=== PATIENT | male | born 1985 | race Caucasian/White ===

== ENCOUNTER 2024-06-27 15:06 | Emergency (ER) | payer SELFPAY ==
[2024-06-27 15:20] VITALS: BP 165/92; PULSE 99; RESP 14; TEMP 37; O2SAT 99; BMI 32.3
--- NOTE | 2024-06-27 15:54 | ED_ITS ---
HPI - Skin/Abscess/Foreign Bdy <Jacquelin Butterfield PA-C - Last Filed: 06/27/24 16:47> General Chief complaint: Skin/Abscess/Foreign Body Stated complaint: puncture wound rt hand Time Seen by Provider: 06/27/24 15:54 Source: patient Mode of arrival: Ambulatory Limitations: no limitations History of Present Illness HPI narrative: Patient is a very pleasant 39-year-old male presents to the emergency department after being directed here from the walk-in clinic. The patient presented to them today after being encouraged by friends. Yesterday the patient took out a knife out of the package, he Biaxin we lost control with, when the knife fell out of his hand he ended up accidentally stabbing himself unintentionally in the right wrist. The tip of the blade insert itself into the lateral aspect of his right wrist along the radial side of the wrist. There was a small puncture wound. The patient pulled the knife out. There was minimal bleeding. The patient placed skin glue over the wound. He told some of his friends who advised him that he should be seen in the urgent care or in the emergency room to be evaluated, in case he got infection. The patient initially went to the w alk-in clinic and the nurse directed him to the emergency room department. Currently at this time the patient does not have any physical complaints. He has some minor discomfort with movement of the wrist. He does not have any signs or symptoms of erythema, redness or drainage from the wound. The skin glue that he applied is still in place. Related Data Previous Rx's Medication Instructions Recorded cephalexin 500 mg capsule 500 mg PO QID 7 days #28 caps 06/27/24 prednisone 10 mg tablet 10 mg PO DIRECTED #12 tabs 06/27/24 Allergies Allergy/AdvReac Type Severity Reaction Status Date / Time No Known Drug Allergies Allergy Verified 06/27/24 15:24 Review of Systems <Jacquelin Butterfield PA-C - Last Filed: 06/27/24 16:47> Review of Systems Narrative: Negative except as above Musculoskeletal Comments: Puncture wound covered by skin glue to the lateral aspect of the right wrist along the radius wrist. Patient History <Jacquelin Butterfield PA-C - Last Filed: 06/27/24 16:47> Social History Smoking Status: Current every day smoker Smoking Status: Current every day smoker tobacco type: cigarettes alcohol intake frequency: 3 or more drinks per day Substance Use Type: does not use Exam <Jacquelin Butterfield PA-C - Last Filed: 06/27/24 16:47> Initial Vital Signs Initial Vital Signs: Vital Signs Temperature 98.6 F 06/27/24 15:20 Pulse Rate 99 H 06/27/24 15:20 Respiratory Rate 14 06/27/24 15:20 Blood Pressure 165/92 H 06/27/24 15:20 Pulse Oximetry 99 06/27/24 15:20 Oxygen Delivery Method Room Air 06/27/24 15:20 Const General: cooperative, healthy appearing, comfortable, well developed, well groomed, No acute distress and No in distress Eyes Pupils: PERRL EOM: EOM intact bilaterally Skin Other: Small puncture wound to the lateral aspect of the right wrist along the radial aspect. Currently a skin glue on it. Does not have any erythema, there is no pus, there is no drainage, there is no streaking. Neuro Other: Cranial nerves are grossly intact. Extrem Other: Evaluation of the right upper extremity and hand and wrist. Patient's cap refill is preserved. Pulses are present. There is no signs of infection. Patient has some discomfort and pain upon stretching the radial tendon and nerve. However there is no paresthesia, he does not have any numbness or tingling or weakness. There is no signs of infection. <DO Galen Diaz Last Filed: 06/27/24 17:08> Initial Vital Signs Initial Vital Signs: Vital Signs Temperature 98.6 F 06/27/24 15:20 Pulse Rate 99 H 06/27/24 15:20 Respiratory Rate 14 06/27/24 15:20 Blood Pressure 165/92 H 06/27/24 15:20 Pulse Oximetry 99 06/27/24 15:20 Oxygen Delivery Method Room Air 06/27/24 15:20 Course <Jacquelin Butterfield PA-C - Last Filed: 06/27/24 16:47> Vital Signs Vital signs: Vital Signs - 8 hr 06/27/24 15:20 Temperature 98.6 F Pulse Rate 99 H Respiratory Rate 14 Blood Pressure 165/92 H Pulse Oximetry 99 Oxygen Delivery Method Room Air Reviewed <Christopher Raya DO - Last Filed: 06/27/24 17:08> Vital Signs Vital signs: Vital Signs - 8 hr 06/27/24 15:20 Temperature 98.6 F Pulse Rate 99 H Respiratory Rate 14 Blood Pressure 165/92 H Pulse Oximetry 99 Oxygen Delivery Method Room Air MDM - Skin/Abscess/Foreign Bdy <Jacquelin Butterfield PA-C - Last Filed: 06/27/24 16:47> MDM Narrative Medical decision making narrative: Pleasant 39-year-old male presents to the emergency room department after being directed here from the walk-in clinic with a unintended afflicted puncture wound to the right wrist that happened yesterday. Please include the wound and then covered it with skin glue. He presented to the walk-in clinic after being encouraged by family and friends. He currently has no physical complaints. They were concerned that possibly might get infected. He has no signs of skin infection. He has some discomfort and pain upon stretching the nerve and tendon of the radial wrist. He has some tenderness along the extensor carpi radius and the previous tendon. However there is no noticeable disruption of his ability to extend, flex or use the thumb. Strength is retained. Range of motion is retained. Puncture wound is over the extensor reticulin. We decided on a prescription of antibiotics that the patient could have in case the area became infected, and then we decided on a short course of prednisone to help with any type of inflammation associated with the tendon becoming inflamed, and the nerve being inflamed. Patient was given extensive education on reasons to present back to the emergency room department. Differential diagnosis; puncture wound, neuritis, neuralgia, tendonitis. Discharge Plan Departure Patient Disposition: Home Clinical Impression: Puncture wound, Neuralgia Activity Restrictions/Additional Instructions: Keep the area clean and dry. Please watch the area for signs of infection. Please fruit or nut picker the prescriptions. Return to the emergency department for any signs of weakness of the hand. Numbness, tingling, decreased function of the hand. Prescriptions: New prednisone 10 mg tablet 10 mg PO DIRECTED Qty: 12 0RF Rx Instructions: see taper instructions 30 mg for 2 days, 20 mg for 2 days, 10 mg for 2 days cephalexin 500 mg capsule 500 mg PO QID 7 Days Qty: 28 0RF Referrals: Miscellaneous,Doctor, MD [Primary Care Provider] - Stand Alone Forms: Patient Portal/API ED Sign-out <Christopher Lanker, DO - Last Filed: 06/27/24 17:08> Cosign ED Attending Cosignature Attestation: Dr Raya Co-Sign Statement: I was available for consultation during this patient's emergency department visit. This chart is signed by myself for administrative purposes only. I did not have direct contact with this patient during this visit. They were seen independently by the [facility].
== END 2024-06-27 16:00 | disposition home or self-care (01) ==
PROVIDERS: Emergency Provider Physician Assistant
DX: S61.531A Puncture wound without foreign body of right wrist, initial encounter (principal); M79.2 Neuralgia and neuritis, unspecified; W26.0XXA Contact with knife, initial encounter
CPT/HCPCS: 99281